=== PATIENT | female | born 1985 | race Caucasian/White ===

== ENCOUNTER 2017-04-08 12:15 | Inpatient (IN) ==
[2017-04-08 14:22] LABS: Basophils % 0.7 % (0.0-0.8); Eosinophils # 0.2 10*3/uL (0.0-0.87); Eosinophils % 6.1 % (0.00-10.9); Hematocrit 40.2 VOL% (35.7-47.0); Hemoglobin 14.2 GM/DL (12.0-16.0); Immature Granulocytes % 0.7 %; Immature Granulocytes Absolute 0.02 #; Lymphocytes # 0.9 10*3/uL (1.4-4.0); Lymphocytes % 33.8 % (21.3-54.2); Mean Corpuscular HGB Conc 35.3 GM/DL (32-36); Mean Corpuscular Hemoglobin 30 PG (27-34); Mean Corpuscular Volume 83.6 FL (87-102); Mean Platelet Volume 9.3 FL (9.6-12.0); Monocytes # 0.6 10*3/uL (0.11-0.8); Monocytes % 20.5 % (1.7-12.7); Neutrophils # 1.1 10*3/uL (1.4-7.4); Neutrophils % 38.2 % (38.7-73.9); Platelet Count 182 T/CUMM (130-400); Red Blood Count 4.81 MC/CUMM (3.8-5.5); Red Cell Distribution Width 12.5 % (9.3-17.3); White Blood Count 2.8 T/CUMM (4-12)
--- NOTE | 2017-04-08 14:38 | Ultrasound Report ---
Gallbladder ultrasound. Indication: Right upper quadrant pain and tenderness. No prior studies. The liver is mildly enlarged with a length of 19 cm. There is fatty infiltration of the liver. No gallstones are seen. There is no gallbladder wall thickening or fluid around the gallbladder. The common duct measures 5 mm. The right kidney presents a normal appearance. The pancreas is partially obscured by bowel gas. Visualized portions appear normal. Impression: Enlarged fatty liver. PROCEDURE INTERPRETED AT [facility] DEPARTMENT OF RADIOLOGY Final Report Signed by: Dr. Charity Acuna
[2017-04-08 14:50] LABS: Alanine Aminotransferase 84 U/L (13-56); Albumin 3.1 G/DL (3.4-5.0); Alkaline Phosphatase 66 U/L (45-117); Aspartate Amino Transferase 77 U/L (0-37); Bilirubin,Total < 0.39 MG/DL (0.2-1.0); Blood Urea Nitrogen 8 MG/DL (7-18); Calcium 8.4 MG/DL (8.5-10.1); Glucose 80 MG/DL (74-106); Osmolality,Calculated 275.4 MOS/KG (273-304); Potassium 4.3 MMOL/L (3.5-5.1); Sodium 140 MMOL/L (136-145); Total Protein 6.7 G/DL (6.4-8.3)
[2017-04-08 15:42] LABS: Apearance,Urine Slightly Hazy (Clear); Bilirubin,Urine Negative (Negative); Blood, Urine Small mg/dL (Negative); Glucose,Urine (UA) Negative (Negative); Hyaline Casts,Urine 4 /LPF (0-3); Ketones,Urine Negative (Negative); Mucus,Urine Occasional /LPF (Occasional); Nitrite,Urine Negative (Negative); Protein,Urine Negative; RBC,Urine 13 /HPF (0-4); Squamous Epithelial Cell,Urine Occasional /HPF (0-10); Urine Color Yellow (Yellow); Urine Specific Gravity 1.018 (1.001-1.035); Urine Urobilinogen < 2.0 EU/DL (0.2-1.0); WBC,Urine 1 /HPF (0-6)
--- NOTE | 2017-04-08 17:57 | Emergency Department Note ---
Damian Michaels Hilary, am scribing for, and in the presence of, Arjun Zaman MD 14:09. Junie Michaels Phillip K, MD, personally performed the services described in this documentation, ascribed by Jazzmine Salgado in my presence, and it is both accurate and complete 757 . Arrival - Arrival ED Nursing Triage Note: reports rlq abd pain that started on april 05. reports was seen in er in [place] then and told it was a cyst on her ovary. went to dr oviedo yesterday for same complaint and told to come to er for possible liver problem. reports also having some chills. Mode of Arrival: Ambulatory Limitations: No Limitations Source: Patient, RN Notes Reviewed - History of Present Illness Onset (ago): day(s) Consistency: constant Severity: moderate Severity scale (1-10): 2 Quality: sharp Date of Last Menstrual Period: two weeks ago <Arjun Zaman - Last Filed: 04/08/17 17:57> <Charli Guevara - Last Filed: 04/08/17 20:39> - Arrival Chief Complaint: Abdominal / Flank Pain Stated Complaint: pain in right wide with fever - History of Present Illness HPI Narrative: Pt is a 31 y/o female presenting to the ED with c/o right abdominal pain which onset 3 days ago. She states that the pain in her Right abdominal area started on April 05, she vomited and was seen in the ER in [place]. They told her she had a cyst on her ovary. She went to Dr. Oviedo yesterday for the complaint and was told to come here. Pt confirms abdominal pain, chills, and fever but denies nausea or vomiting. She also reports that eating sometimes makes it worse sometimes it doesn't. No other complaints or problems stated in the ED. (Jazzmine Salgado) Pt is a 31 y/o female presenting to the ED with c/o right abdominal pain which onset 3 days ago. She states that the pain in her Right abdominal area started on April 05, she vomited and was seen in the ER in [place]. They told her she had a cyst on her ovary. She went to Dr. Oviedo yesterday for the complaint and was told to come here. Pt confirms abdominal pain, chills, and fever but denies nausea or vomiting. She also reports that eating sometimes makes it worse sometimes it doesn't. No other complaints or problems stated in the ED. (Arjun Zaman) Allergies/Adverse Reactions: Allergies Allergy/AdvReac Type Severity Reaction Status Date / Time atropine [From ] Allergy RASH Verified 04/08/17 12:29 Hyoscyamine [From ] Allergy RASH Verified 04/08/17 12:29 phenobarbital [From ] Allergy RASH Verified 04/08/17 12:29 scopolamine [From ] Allergy RASH Verified 04/08/17 12:29 Home Medications: Home Medications Medication Instructions Recorded Confirmed Type Irbesartan [Avapro] 150 mg PO DAILY 04/08/17 04/08/17 History clonazePAM TAB [KlonoPIN] 0.5 mg PO QAM 04/08/17 04/08/17 History clonazePAM TAB [KlonoPIN] 1 mg PO BEDTIME 04/08/17 04/08/17 History hydroCHLOROthiazide 25 mg PO DAILY 04/08/17 04/08/17 History [Hydrochlorothiazide] Review of System - Review of System 12 point system: reviewed and no additional remarkable complaints except as stated - Review of System Constitutional: Present: chills, fever Gastrointestinal: Present: abdominal pain (RUQ), nausea, vomiting <Arjun Zaman - Last Filed: 04/08/17 17:57> Medical,Surgical,& Family Hx - Medical History Cardio: History of: Hypertension - Social History Smoking Status: Never smoker <Arjun Zaman - Last Filed: 04/08/17 17:57> Exam - General General appearance: alert, in no apparent distress, obese - Head Head exam: Present: atraumatic, normocephalic - Eye Eye exam: Present: normal appearance, PERRL, EOMI - ENT ENT exam: Present: mucous membranes moist, TM's normal bilaterally. Absent: mucous membranes dry - Neck Neck exam: Present: full ROM, trachea midline. Absent: tenderness - Chest Chest inspection: Present: symmetric chest wall rise. Absent: tenderness - Respiratory Respiratory exam: Present: normal lung sounds bilaterally. Absent: respiratory distress - Cardiovascular Cardiovascular exam: Present: normal rhythm, tachycardia, normal heart sounds. Absent: murmur, rubs, gallop - Abdominal Exam Abdominal exam: Present: soft, tenderness (RUQ with direct palpation), normal bowel sounds. Absent: distention - Extremities Exam Extremities exam: Present: full ROM. Absent: tenderness - Back Exam Back exam: Present: full ROM. Absent: tenderness - Neurological Exam Neurological exam: Present: alert, oriented X3, CN II-XII intact. Absent: motor sensory deficit - Psychiatric Psychiatric exam: Present: normal affect, normal mood - Skin Skin exam: Present: warm, dry, intact, normal color. Absent: rash <Arjun Zaman - Last Filed: 04/08/17 17:57> Vital Signs: Vital Signs Temperature 98.1 F 04/08/17 12:24 Pulse Rate 93 H 04/08/17 16:15 Respiratory Rate 20 04/08/17 16:15 Blood Pressure 169/116 04/08/17 16:15 O2 Sat by Pulse Oximetry 99 04/08/17 16:15 Course <Arjun Zaman - Last Filed: 04/08/17 17:57> - Consultations Time: 20:39 Time: 20:39 <Charli Guevara - Last Filed: 04/08/17 20:39> Course Narrative: Patient signed out to Dr. Guevara at 1800. HIDA scan is pending (Arjun Zaman) - Consultations Consultation #1: Dr. You advisement patient to the hospital follow-up with GI, Dr. You will see in consult (Charli Guevara) Consultation #2: Hospitalist will admit patient (Charli Guevara) Results - Labs CBC & BMP: 04/08/17 14:16 04/08/17 14:16 Lab Results: I have reviewed the patients labs - Diagnostic Findings Procedure: Ultrasound: report reviewed by me (GALLBLADDER: Enlarged fatty liver) <Arjun Zaman - Last Filed: 04/08/17 17:57> - Labs CBC & BMP: 04/08/17 14:16 04/08/17 14:16 <Charli Guevara - Last Filed: 04/08/17 20:39> - Labs Labs: Laboratory Tests 04/08/17 14:16 WBC 2.8 L RBC 4.81 Hgb 14.2 Hct 40.2 MCV 83.6 L Plt Count 182 MPV 9.3 L Neut % (Auto) 38.2 L [place] % (Auto) 20.5 H Neut # (Auto) 1.1 L Lymph # (Auto) 0.9 L Laboratory Tests 04/08/17 14:16 Sodium 140 Potassium 4.3 Chloride 106 Carbon Dioxide 26 BUN 8 Calcium 8.4 L AST 77 H ALT 84 H Total Protein 6.7 Albumin 3.1 L Globulin 3.6 H Albumin/Globulin Ratio 0.8 L Laboratory Tests 04/08/17 15:31 Urine pH 5.0 Ur Specific [place] 1.018 Urine Blood Small Urine Urobilinogen < 2.0 H Urine RBC 13 Urine WBC 1 Hyaline Casts 4 ([place],Jazzmine) Laboratory Tests 04/08/17 14:16 WBC 2.8 L RBC 4.81 Hgb 14.2 Hct 40.2 MCV 83.6 L Plt Count 182 MPV 9.3 L Neut % (Auto) 38.2 L [place] % (Auto) 20.5 H Neut # (Auto) 1.1 L Lymph # (Auto) 0.9 L Laboratory Tests 04/08/17 14:16 Sodium 140 Potassium 4.3 Chloride 106 Carbon Dioxide 26 BUN 8 Calcium 8.4 L AST 77 H ALT 84 H Total Protein 6.7 Albumin 3.1 L Globulin 3.6 H Albumin/Globulin Ratio 0.8 L Laboratory Tests 04/08/17 15:31 Urine pH 5.0 Ur Specific [place] 1.018 Urine Blood Small Urine Urobilinogen < 2.0 H Urine RBC 13 Urine WBC 1 Hyaline Casts 4 (Arjun Zaman) Disposition <Arjun Zaman - Last Filed: 04/08/17 17:57> Case discussed with: patient, patient's family Time of Disposition: 20:39 <Charli Guevara - Last Filed: 04/08/17 20:39> Clinical Impression: Abdominal pain Disposition: Still a Patient Condition: Stable
[2017-04-08 18:19] LABS: Eosinophils 3 % (0-10); Lymphocytes 36 % (20-55); Promyelocytes 1 %; Segmented Neutrophils 40 % (50-85); Total Cells Counted 100
[2017-04-08 18:20] LABS: Giant Platelets Few; Hypochromasia Slight; Platelet Estimate Adequate
--- NOTE | 2017-04-08 18:53 | Nuclear Medicine Report ---
Nuclear medicine hepatobiliary scan. Indication: Right upper quadrant abdominal pain. Following the intravenous administration of 5 mCi technetium 99m Choletec, hepatic excretion is prompt and uniform. Gallbladder activity can be seen by 5 minutes. Bowel activity can be seen by 30 minutes. The patient was administered 8 ounces of ensure orally, and the patient complained of cramping and nausea. The ejection fraction was calculated to be 57%, normal is 35% or greater. Impression: Normal study, except that the patient experienced pain and nausea, which she drank ensure. PROCEDURE INTERPRETED AT [facility] DEPARTMENT OF RADIOLOGY Final Report Signed by: Dr. Charity Acuna
[2017-04-08] MEDS ORDERED: ONDANSETRON 4 MG/2 ML VIAL ONE (19:03)
[2017-04-08] MEDS ORDERED: HYDROmorphone 2 MG/1 ML VIAL ONE (19:03)
[2017-04-08] MEDS ORDERED: HYDROmorphone 2 MG/1 ML VIAL IV ONE (19:08)
[2017-04-08] MEDS ORDERED: ONDANSETRON 4 MG/2 ML VIAL IV ONE (19:08)
--- NOTE | 2017-04-08 20:21 | XRay Report ---
2 view abdomen. Indication: Generalized abdominal pain. The heart is normal in size. The lung bases are clear. A 4 mm calcification projects over the lower pole of the left kidney. Multiple calcifications are seen within the pelvis. The bowel gas pattern is within the range of normal. No evidence of obstruction or free air. Normal osseous structures. Impression: Possible left nephrolithiasis. PROCEDURE INTERPRETED AT [facility] DEPARTMENT OF RADIOLOGY Final Report Signed by: Dr. Charity Acuna
--- NOTE | 2017-04-08 20:54 | XRay Report ---
2 view chest. Indication: Abdominal pain. The heart and mediastinal contours are unremarkable. The pulmonary vasculature is normal. There is no consolidation, pneumothorax, or pleural effusion. The osseous structures are unremarkable. Impression: No abnormality is seen. PROCEDURE INTERPRETED AT [facility] DEPARTMENT OF RADIOLOGY Final Report Signed by: Dr. Charity Acuna
--- NOTE | 2017-04-08 21:03 | Hospitalist History & Physical ---
Assessment and Plan - Time spent with patient Time spent with patient: Greater than 30 minutes (1) Abdominal pain Status: Acute Assessment and plan: Admit the patient to the MedSurg unit under service the hospital from the ED. Consult GI for possible upper GI. Will add hepatitis panel and H. Pylori to am labs. Continue empiric Flagyl 500 mg IV every 8. Pain control as needed Current Visit: Yes Qualifiers: Abdominal location: right upper quadrant Qualified Code(s): R10.11 - Right upper quadrant pain (2) Elevated AST (SGOT) Status: Acute Current Visit: Yes History of Present Illness Chief complaint: Right upper quadrant abd pain History of present illness: Ms. Leung is a 31 year old female female with a past medical history of HTN presents to the ED today with chief complaint of right upper quadrant abdominal pain. The reports the paint initially started April 05, following attending a BBQ. She reports her stomach cramped, she had nausea/vomiting, and diarrhea. She does report fever that waxes and wane with a T-max of 100.2. She reports the nausea/vomiting and diarrhea stopped the next day. She went to the ED in [place] and was diagnosed with a ovarian cyst and "stomach virus." She followed up with her PCP, Dr. Oviedo yesterday and was told she needed to report to the ED due to she may have liver problems based on the CT done in [facility]. CT of ABD and Pelvis with contrast performed at outlying facility demonstrates Enlarged, fatty liver, Left nephrolithiasis without urethral obstruction, and calcification present on left ovary and cystic areas to right recommending pelvic US. Initial work up in the ED reveals WBC of 2.8, H/H of 14.2 and 40.2, plt of 182, NA of 140, Potassium of 4.3, BUN of 8, creatinine of 0.70. HIDA scan returned normal results with the exception of cramping when drinking the ensure. Gallbladder US reveals enlarged fatty liver. She will be admitted to the MedSurg unit under service hospital for further treatment. Home Medications Medication Instructions Recorded Confirmed Type Irbesartan [Avapro] 150 mg PO DAILY 04/08/17 04/08/17 History clonazePAM TAB [KlonoPIN] 0.5 mg PO QAM 04/08/17 04/08/17 History clonazePAM TAB [KlonoPIN] 1 mg PO BEDTIME 04/08/17 04/08/17 History hydroCHLOROthiazide 25 mg PO DAILY 04/08/17 04/08/17 History [Hydrochlorothiazide] Allergies Allergy/AdvReac Type Severity Reaction Status Date / Time atropine [From ] Allergy RASH Verified 04/08/17 12:29 Hyoscyamine [From ] Allergy RASH Verified 04/08/17 12:29 phenobarbital [From ] Allergy RASH Verified 04/08/17 12:29 scopolamine [From ] Allergy RASH Verified 04/08/17 12:29 Medical,Surgical,& Family Hx - Medical History Cardio: History of: Hypertension Reproductive: History of: Sexually Transmitted Disorders - Surgical History Reproductive Surgeries: Surgical HX of;: Section - Family History Family History: Reports;: Family Diabetes, Family Heart Disease - Social History Smoking Status: Never smoker Frequency of Alcohol Use: None Type of Drug Use: None Marital Status: Lives With:: Spouse Functional capacity: independent ambulation - Constitutional Constitutional: Present: fever(s) (T-max 102, fever waxes and wanes ) - Gastrointestinal Gastrointestinal: Present: abdominal pain, cramping, nausea, vomiting Exam - Constitutional Vitals: Period Temp Pulse Resp BP Sys/Eisenberg Pulse Ox Last 24 Hr 98.1 F-98.1 F 86-97 18-22 133-184/74-154 97-100 General appearance: over weight - Head Head exam: Present: normal inspection - Eye Pupils: Present: AMANDA - ENT ENT exam: Present: normal exam - Neck Neck exam: Present: normal inspection - Respiratory Respiratory exam: Present: clear to auscultation bilaterally - Cardiovascular Cardiovascular exam: Present: regular rate and rhythm - GI/Abdominal GI/Abdominal exam: Present: hyperactive bowel sounds, tenderness (right upper quadrant ), soft - Extremities Exam Extremities exam: Present: normal inspection - Back Exam Back exam: Present: normal inspection - Neurological Exam Neurological exam: Present: alert, oriented X3 - Skin Skin exam: Present: normal color Results - Labs CBC & BMP: 04/08/17 14:16 04/08/17 14:16
[2017-04-08] MEDS ORDERED: ONDANSETRON 4 MG/2 ML VIAL IV PRN (21:46)
[2017-04-08] MEDS ORDERED: MORPHINE 2 MG/1 ML SYRINGE IV PRN (21:46)
[2017-04-08] MEDS: clonazePAM 0.5 MG TABLET PO SCH (22:14)
[2017-04-08] MEDS: metroNIDAZOLE INJ 500 MG in PREMIX 1 EACH IV SCH (22:14)
[2017-04-08] MEDS: ENOXAPARIN 40 MG/0.4 ML SYRINGE SUBCUT SCH (22:15)
[2017-04-08] MEDS: SODIUM CHLORIDE 0.9% 1,000 ML IV SCH (22:16)
[2017-04-08] MEDS: CIPROFLOXACIN INJ 400 MG in PREMIX 1 EACH IV SCH (23:28)
[2017-04-09] MEDS ORDERED: POTASSIUM CHLORIDE 20 MEQ TABLET PO PRN (01:02)
[2017-04-09] MEDS ORDERED: ACETAMINOPHEN 325 MG TABLET PO PRN (03:55)
[2017-04-09 04:19] LABS: Eosinophils # 0.2 10*3/uL (0.0-0.87); Eosinophils % 5.8 % (0.00-10.9); Hemoglobin 12.8 GM/DL (12.0-16.0); Immature Granulocytes % 0.3 %; Immature Granulocytes Absolute 0.01 #; Lymphocytes # 1.1 10*3/uL (1.4-4.0); Lymphocytes % 36.7 % (21.3-54.2); Mean Corpuscular HGB Conc 34.6 GM/DL (32-36); Mean Corpuscular Hemoglobin 29 PG (27-34); Mean Corpuscular Volume 83.1 FL (87-102); Monocytes # 0.5 10*3/uL (0.11-0.8); Monocytes % 15.9 % (1.7-12.7); Neutrophils # 1.2 10*3/uL (1.4-7.4); Neutrophils % 40.3 % (38.7-73.9); Platelet Count 203 T/CUMM (130-400); Red Blood Count 4.45 MC/CUMM (3.8-5.5); Red Cell Distribution Width 12.7 % (9.3-17.3); White Blood Count 3.1 T/CUMM (4-12)
[2017-04-09 04:49] LABS: Albumin 2.9 G/DL (3.4-5.0); Bilirubin,Total 0.7 MG/DL (0.2-1.0); Calcium 8.5 MG/DL (8.5-10.1); Magnesium 1.8 MG/DL (1.8-2.4); Osmolality,Calculated 272.7 MOS/KG (273-304); Potassium 3.8 MMOL/L (3.5-5.1); Risk Ratio 6.44
[2017-04-09 05:19] LABS: Band Neutrophils 6 % (0-10); Eosinophils 5 % (0-10); Lymphocytes 30 % (20-55); Myelocytes 5 %; Segmented Neutrophils 46 % (50-85)
[2017-04-09 05:20] LABS: Platelet Estimate Normal; Total Cells Counted 100
[2017-04-09] MEDS: metroNIDAZOLE INJ 500 MG in PREMIX 1 EACH IV SCH ×3 (06:12→21:58)
--- NOTE | 2017-04-09 07:10 | XRay Report ---
Single view of the abdomen. Indication: Generalized abdominal pain. Comparison: April 08, 2017. The lung bases are clear. No intra-abdominal organomegaly. Calcification projects over the left renal outline. Several calcifications are seen within the pelvis. There is a air in dilated loops of small intestine in the left upper quadrant. There is air in normal caliber colon without evidence of obstruction. Osseous structures are unremarkable. Impression: Mildly dilated air-filled loops of small intestine are seen in the left upper abdomen. This could be due to ileus or enteritis. Suspected left nephrolithiasis. PROCEDURE INTERPRETED AT [facility] DEPARTMENT OF RADIOLOGY Final Report Signed by: Dr. Charity Acuna
[2017-04-09 08:32] LABS: Hepatitis A Ab IgM Quant 0.18 Index; Hepatitis A Ab IgM Result Negative (Negative); Hepatitis B Core IgM Quant 0.15 Index; Hepatitis B Core IgM Result Negative (Negative); Hepatitis B Surface Ag Quant 0.31 Index; Hepatitis B Surface Ag Result Negative (Negative); Hepatitis C Virus Ab Quant 0.07 Index; Hepatitis C Virus Ab Result Negative (Negative)
[2017-04-09] MEDS: hydroCHLOROthiazide 25 MG TABLET PO SCH (08:52)
[2017-04-09] MEDS: clonazePAM 0.5 MG TABLET PO SCH ×2 (08:52→21:51)
[2017-04-09] MEDS: IRBESARTAN 150 MG TABLET PO SCH (08:52)
[2017-04-09] MEDS: PANTOPRAZOLE 40 MG VIAL IV SCH (08:53)
--- NOTE | 2017-04-09 10:45 | EKG Report ---
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
[2017-04-09] MEDS: CIPROFLOXACIN INJ 400 MG in PREMIX 1 EACH IV SCH ×2 (11:04→23:11)
--- NOTE | 2017-04-09 11:07 | Gastrointestinal Consult Note ---
Assessment and Plan - Time spent with patient Time spent with patient: Greater than 30 minutes (1) Abdominal pain Status: Acute Current Visit: Yes Qualifiers: Abdominal location: right upper quadrant Qualified Code(s): R10.11 - Right upper quadrant pain (2) Elevated liver enzymes Status: Acute Current Visit: Yes (3) Other specified counseling Status: Acute Current Visit: Yes History of Present Illness History of present illness: Ms. Leung is a 31 year old female Home Medications Medication Instructions Recorded Confirmed Type Irbesartan [Avapro] 150 mg PO DAILY 04/08/17 04/08/17 History clonazePAM TAB [KlonoPIN] 0.5 mg PO QAM 04/08/17 04/08/17 History clonazePAM TAB [KlonoPIN] 1 mg PO BEDTIME 04/08/17 04/08/17 History hydroCHLOROthiazide 25 mg PO DAILY 04/08/17 04/08/17 History [Hydrochlorothiazide] Allergies Allergy/AdvReac Type Severity Reaction Status Date / Time atropine [From ] Allergy RASH Verified 04/08/17 12:29 Hyoscyamine [From ] Allergy RASH Verified 04/08/17 12:29 phenobarbital [From ] Allergy RASH Verified 04/08/17 12:29 scopolamine [From ] Allergy RASH Verified 04/08/17 12:29 Medical,Surgical,& Family Hx - Medical History Cardio: History of: Hypertension Psychological: History of: Anxiety Disorders Respiratory: History of: Asthma Genitourinary: History of: Kidney Stones Musculoskeletal: History of: Back/Neck Problems Reproductive: History of: Sexually Transmitted Disorders - Surgical History Reproductive Surgeries: Surgical HX of;: Section Patient denies;: Hysterectomy - Family History Family History: Reports;: Family Diabetes, Family Heart Disease, Family Hypertension (father and grandmother) Denies;: Family Anesthesia Reaction, Family Hematology, Family Psychiatric Problems, Family Stroke, Additional Family History Comment Only: Family Cancer ((ovary)mother (lung) grandfather) - Social History Smoking Status: Never smoker Frequency of Alcohol Use: None Type of Drug Use: None Exam - Constitutional Vitals: Period Temp Pulse Resp BP Sys/Eisenberg Pulse Ox Last 24 Hr 97.1 F-99.1 F 86-104 18-22 117-184/74-154 21-100 Results - Labs CBC & BMP: 04/09/17 03:39 04/09/17 03:39 Note Addendum: PLEASE NOTE -- automatic citation of patient information is unavoidable in this electronic note. I have made a reasonable effort to review the information cited , but it is not a part of my evaluation, impression, or recommendation unless specifically discussed in the dictated text that follows. As well, voice recognition software was used in the creation of this clinical note. Reasonable effort was made to identify and correct gross errors. Despite proofreading, errors in technology applications engineer may be present, including nonsense verbiage at times. If you encounter such an error, please contact me at [phone] for discussion and correction. -- Luis Chief complaint: abdominal pain History of present illness: This is a new patient, a 31-year-old female seen by consultation for evaluation of abdominal pain. The patient is admitted to the hospitalist service under the care of Dr. Hook with a primary diagnosis of same. The patient was admitted through the emergency department with primary complaint of intermittent abdominal cramping, nausea, vomiting, diarrhea, and transient fever over the preceding week. Evaluation at that time revealed normal laboratory work with the exception of elevated transaminases and mild leukopenia. By report, CT scan taken at an outside facility revealed evidence of hepatic infiltration consistent with nonalcoholic fatty liver disease. The pain is reported as right upper quadrant, sharp quality, occurring several times per day, unrelated to body position, sometimes worse with eating, and usually self-limited after a few minutes. She has a history of esophageal reflux treated with proton pump inhibitor but has not been using that for the past week or two. Since her admission, the patient has been treated with enteric spectrum antibiotic, otherwise, supportively. At present she reports minimal discomfort and positive appetite. Patient denies night sweats, rigors, headache, dizziness, neck pain, visual changes, redness of the eyes, dysphagia, odynophagia, difficulty chewing, chest pain, shortness of breath, weight loss, hematemesis, hematochezia, melena, proctalgia, constipation, dysuria, skin changes, temperature regulation issues, flushing, easy bleeding/bruising, musculoskeletal pain, mental status change, numbness/weakness in the extremities, yellowing of the eyes/skin, cutaneous eruptions, and other complaints in general. Review of systems: 12 point review of systems was negative except as documented above. Outpatient medications: hydrochlorothiazide, Klonopin, Avapro Inpatient medications: Tylenol, ciprofloxacin, metronidazole, Klonopin, hydrochlorothiazide, Avapro, Zofran, Protonix, morphine sulfate, Zofran, sodium chloride infusion Past Medical History: hypertension, sexually transmitted disease Social history: negative tobacco. Negative alcohol Family history: no gastrointestinal cancers Physical examination: Vital Signs: Current vital signs reviewed and documented above. General Appearance: well-appearing. Not acutely ill. Head: Normocephalic. Neck: Palpation of the neck revealed no abnormalities. Eyes: No scleral icterus. No scleral injection. No conjunctival pallor. Oral Cavity: Odor of breath was normal. No drooling was observed. Lips showed no abnormalities. Floor of the mouth showed no abnormalities. Pharynx: Oropharynx was normal. Lungs: Respiration rhythm and depth was normal. Cardiovascular: Heart rate and rhythm were normal. No murmurs were appreciated. Abdomen: abdomen protuberant due to obesity but was not distended. Abdominal palpation revealed no tenderness and no hepatosplenomegaly. Ascites was not discovered. Abdominal auscultation revealed positive bowel sounds. Musculoskeletal System: Musculoskeletal system was grossly normal. Neurological: level of consciousness was normal. Speech was normal. Skin: General appearance was normal. Color and pigmentation were normal. No skin lesions. Laboratory: white blood count 3.1, hemoglobin 12.8, hematocrit 37.0, platelets 203, ALT 85, AST 79, alkaline phosphatase 63, total bilirubin 0.7, lipase 195, albumin 2.9, hepatitis panel negative Radiology: -- gallbladder ultrasound, April 08, 2017: enlarged infiltrated liver consistent with fatty liver; normal gallbladder; normal common bile duct -- HIDA scan, April 08, 2017: normal exam except subjective pain when drinking protein preparation Impressions: 1. Abdominal pain -- the differential diagnosis includes peptic ulcer, gastritis /esophagitis generally, pancreatic or biliary disease, acute hepatitis, infectious gastroenteritis, and others. I recommend continued proton pump inhibitor, continued clear liquid, and minimization of medications to whatever extent possible, and continued volume and electrolyte control. We will plan upper endoscopy with timing based on clinical progress, likely Tuesday. We will follow up with further recommendations pending results of the studies. 2. Elevated liver associated enzymes -- the patient has elevated transaminases and radiologic findings consistent with infiltrated disease, most likely nonalcoholic fatty liver disease. The differential diagnosis also includes infectious and/or toxic hepatitis, metabolic hepatitis, autoimmune hepatitis, and genetically mediated hepatidities. I recommend screening against hepatic differential and continued monitoring of enzymes for now. 3. Other specified counseling -- The patient was seen for greater than 30 minutes. The patient was counseled for greater than 50% of this time regarding differential diagnosis, likely diagnosis, diagnostic and therapeutic alternatives, risks/benefits/alternatives of medications and procedures, and plan of care generally. The patient expressed understanding and wishes to proceed. Recommendations: -- continued proton pump inhibitor -- continued volume and electrolyte management -- minimization of medications generally -- continued clear liquid diet -- continued monitoring of liver associated enzymes -- upper endoscopy, likely Tuesday -- thank you for this consultation. We will follow with you
--- NOTE | 2017-04-09 14:29 | Hospitalist Progress Note ---
<Tae Liz - Last Filed: 04/09/17 14:25> Assessment and Plan (1) Abdominal pain Status: Acute Assessment and plan: Awaiting GI recommendations. Continue Flagyl. Pain control. IVF. Advance diet. Current Visit: Yes Qualifiers: Abdominal location: right upper quadrant Qualified Code(s): R10.11 - Right upper quadrant pain Hospitalist: Subjective Interval history: Ms. Leung was seen and examined today. Pt. alert and oriented. No distress noted. Pt. states she feels slightly better. She still has some tenderness to her abdomen. Mild increase in AST/ALT today but not significant. Awaiting GI recommendations. Will continue current plan of care. Exam - Constitutional Vitals: Period Temp Pulse Resp BP Sys/Eisenberg Pulse Ox Last 24 Hr 97.1 F-99.1 F 86-104 18-20 117-184/74-154 21-100 General appearance: no acute distress, morbidly obese - Head Head exam: Present: normal inspection, normocephalic - Eye Eye exam: Present: EOMI. Absent: scleral icterus Pupils: Present: AMANDA. Absent: fixed - Neck Neck exam: Present: normal inspection - Respiratory Respiratory exam: Present: clear to auscultation bilaterally. Absent: wheezes - Cardiovascular Cardiovascular exam: Present: regular rate and rhythm - GI/Abdominal GI/Abdominal exam: Present: normal bowel sounds, tenderness, soft - Extremities Exam Extremities exam: Present: normal capillary refill, full ROM. Absent: edema - Neurological Exam Neurological exam: Present: alert, oriented X3 - Psychiatric Psychiatric exam: Present: normal affect, normal mood - Skin Skin exam: Present: normal color, warm, dry Results - Labs CBC & BMP: 04/09/17 03:39 04/09/17 03:39 Lab Results: I have reviewed the past 24 hour labs <Юлия Hook - Last Filed: 04/09/17 16:29> Hospitalist: Subjective Interval history: Patient seen and examined along with JOHNIE Liz, agree with assessment and plan as documented. Exam - Constitutional Vitals: Period Temp Pulse Resp BP Sys/Eisenberg Pulse Ox Last 24 Hr 97.1 F-99.1 F 87-104 18-20 117-179/74-109 21-99 Results - Labs CBC & BMP: 04/09/17 03:39 04/09/17 03:39
[2017-04-09] MEDS: SODIUM CHLORIDE 0.9% 1,000 ML IV SCH (18:30)
[2017-04-09 18:38] LABS: Ferritin 376.4 ng/ml (8-252)
[2017-04-09] MEDS: ENOXAPARIN 40 MG/0.4 ML SYRINGE SUBCUT SCH (21:51)
[2017-04-10] MEDS: SODIUM CHLORIDE 0.9% 1,000 ML IV SCH ×2 (02:00→16:22)
[2017-04-10 05:17] LABS: Basophils % 0.6 % (0.0-0.8); Eosinophils # 0.3 10*3/uL (0.0-0.87); Eosinophils % 10.1 % (0.00-10.9); Hemoglobin 12.8 GM/DL (12.0-16.0); Immature Granulocytes % 0.3 %; Immature Granulocytes Absolute 0.01 #; Lymphocytes # 1.5 10*3/uL (1.4-4.0); Lymphocytes % 46.2 % (21.3-54.2); Mean Corpuscular HGB Conc 34.6 GM/DL (32-36); Mean Corpuscular Hemoglobin 29 PG (27-34); Mean Corpuscular Volume 84.5 FL (87-102); Mean Platelet Volume 10.2 FL (9.6-12.0); Monocytes # 0.6 10*3/uL (0.11-0.8); Neutrophils # 0.8 10*3/uL (1.4-7.4); Neutrophils % 24.8 % (38.7-73.9); Platelet Count 203 T/CUMM (130-400); Red Blood Count 4.38 MC/CUMM (3.8-5.5); Red Cell Distribution Width 12.7 % (9.3-17.3); White Blood Count 3.2 T/CUMM (4-12)
[2017-04-10 05:39] LABS: Calcium 8.1 MG/DL (8.5-10.1); Osmolality,Calculated 272.7 MOS/KG (273-304); Potassium 3.7 MMOL/L (3.5-5.1)
[2017-04-10 05:52] LABS: Band Neutrophils 6 % (0-10); Eosinophils 5 % (0-10); Lymphocytes 49 % (20-55); Platelet Estimate Normal; Segmented Neutrophils 25 % (50-85); Total Cells Counted 100
[2017-04-10] MEDS: metroNIDAZOLE INJ 500 MG in PREMIX 1 EACH IV SCH ×3 (05:57→21:38)
[2017-04-10] MEDS: PANTOPRAZOLE 40 MG VIAL IV SCH (09:45)
[2017-04-10] MEDS: hydroCHLOROthiazide 25 MG TABLET PO SCH (09:47)
[2017-04-10] MEDS: clonazePAM 0.5 MG TABLET PO SCH ×2 (09:47→20:49)
[2017-04-10] MEDS: IRBESARTAN 150 MG TABLET PO SCH (09:47)
[2017-04-10] MEDS: CIPROFLOXACIN INJ 400 MG in PREMIX 1 EACH IV SCH ×2 (11:08→23:34)
--- NOTE | 2017-04-10 13:05 | Hospitalist Progress Note ---
Assessment and Plan (1) Abdominal pain Status: Acute Assessment and plan: GI following EGD tomorrow Current Visit: Yes Qualifiers: Abdominal location: right upper quadrant Qualified Code(s): R10.11 - Right upper quadrant pain (2) Elevated liver enzymes Status: Acute Assessment and plan: GI following Continue to monitor Current Visit: Yes Hospitalist: Subjective Interval history: No acute events overnight. Abdominal pain is better, controlled with pain medications. Still with some mild nausea. Reports being hungry. Exam - Constitutional Vitals: Period Temp Pulse Resp BP Sys/Eisenberg Pulse Ox Last 24 Hr 97.1 F-98.6 F 78-94 18-22 119-146/69-87 95-98 General appearance: over weight - Head Head exam: Present: normocephalic, atraumatic - Eye Eye exam: Present: EOMI Pupils: Present: AMANDA - ENT ENT exam: Present: normal exam - Neck Neck exam: Present: normal inspection - Respiratory Respiratory exam: Present: clear to auscultation bilaterally. Absent: rhonchi, wheezes - Cardiovascular Cardiovascular exam: Present: regular rate and rhythm - GI/Abdominal GI/Abdominal exam: Present: normal bowel sounds, soft. Absent: tenderness, rebound - Extremities Exam Extremities exam: Present: normal inspection - Back Exam Back exam: Present: normal inspection - Neurological Exam Neurological exam: Present: alert, oriented X3 - Psychiatric Psychiatric exam: Present: normal affect, normal mood - Skin Skin exam: Present: warm, intact Results - Labs CBC & BMP: 04/10/17 03:24 04/10/17 03:24
--- NOTE | 2017-04-10 15:00 | Gastrointestinal Progress Note ---
Assessment and Plan (1) Abdominal pain Status: Acute Current Visit: Yes Qualifiers: Abdominal location: right upper quadrant Qualified Code(s): R10.11 - Right upper quadrant pain (2) Elevated liver enzymes Status: Acute Current Visit: Yes (3) Other specified counseling Status: Acute Current Visit: Yes Exam (Progress Note) - Constitutional Vitals: Period Temp Pulse Resp BP Sys/Eisenberg Pulse Ox Last 24 Hr 97.1 F-98.6 F 78-94 18-22 119-146/69-87 95-98 Results - Labs CBC & BMP: 04/10/17 03:24 04/10/17 03:24 Note Addendum: This is a follow-up patient, a 31-year-old female seen by consultation for evaluation of abdominal pain. The patient reports some improvement but continues with right upper quadrant cramping. She is tolerating oral intake without exacerbation of symptoms. Review of systems: 12 point review of systems was negative except as documented above. Inpatient medications: Tylenol, ciprofloxacin, metronidazole, Klonopin, hydrochlorothiazide, Avapro, Zofran, Protonix, morphine sulfate, Zofran, sodium chloride infusion Physical examination: Vital Signs: Current vital signs reviewed and documented above. General Appearance: well-appearing. Not acutely ill. Head: Normocephalic. Neck: Palpation of the neck revealed no abnormalities. Eyes: No scleral icterus. No scleral injection. No conjunctival pallor. Oral Cavity: Odor of breath was normal. No drooling was observed. Lips showed no abnormalities. Floor of the mouth showed no abnormalities. Pharynx: Oropharynx was normal. Lungs: Respiration rhythm and depth was normal. Cardiovascular: Heart rate and rhythm were normal. No murmurs were appreciated. Abdomen: abdomen protuberant due to obesity but was not distended. Abdominal palpation revealed no tenderness and no hepatosplenomegaly. Ascites was not discovered. Abdominal auscultation revealed positive bowel sounds. Musculoskeletal System: Musculoskeletal system was grossly normal. Neurological: level of consciousness was normal. Speech was normal. Skin: General appearance was normal. Color and pigmentation were normal. No skin lesions. Laboratory: white blood count 3.2, hemoglobin 12.8, hematocrit 37.0, platelets 23, liver labs pending Radiology: -- gallbladder ultrasound, April 08, 2017: enlarged infiltrated liver consistent with fatty liver; normal gallbladder; normal common bile duct -- HIDA scan, April 08, 2017: normal exam except subjective pain when drinking protein preparation Impressions: 1. Abdominal pain -- the patient reports some improvement but continues with cramping. We will plan upper endoscopy tomorrow and will follow up with further recommendations pending the results of that exam. In the interim, continue supportive care. 2. Elevated liver associated enzymes -- the patient has elevated transaminases and radiologic findings consistent with infiltrative disease. Screening labs are pending. The patient will need to follow-up in the outpatient gastroenterology clinic for further management. 3. Other specified counseling -- The patient was seen for greater than 30 minutes. The patient was counseled for greater than 50% of this time regarding differential diagnosis, likely diagnosis, diagnostic and therapeutic alternatives, risks/benefits/alternatives of medications and procedures, and plan of care generally. The patient expressed understanding and wishes to proceed. Recommendations: -- continued proton pump inhibitor -- continued volume and electrolyte management -- minimization of medications generally -- continued clear liquid diet -- continued monitoring of liver associated enzymes -- upper endoscopy Tuesday -- thank you for this consultation. Dr. Watson will assume G.I. care for this patient tomorrow.
[2017-04-10] MEDS: ENOXAPARIN 40 MG/0.4 ML SYRINGE SUBCUT SCH (20:49)
[2017-04-11] MEDS: metroNIDAZOLE INJ 500 MG in PREMIX 1 EACH IV SCH ×2 (05:52→17:11)
[2017-04-11 06:12] LABS: Basophils % 0.9 % (0.0-0.8); Eosinophils # 0.2 10*3/uL (0.0-0.87); Eosinophils % 7.4 % (0.00-10.9); Hematocrit 37.2 VOL% (35.7-47.0); Immature Granulocytes % 0.3 %; Immature Granulocytes Absolute 0.01 #; Lymphocytes # 1.7 10*3/uL (1.4-4.0); Lymphocytes % 50.6 % (21.3-54.2); Mean Corpuscular HGB Conc 34.9 GM/DL (32-36); Mean Corpuscular Hemoglobin 29 PG (27-34); Mean Corpuscular Volume 83.2 FL (87-102); Mean Platelet Volume 9.5 FL (9.6-12.0); Monocytes # 0.5 10*3/uL (0.11-0.8); Neutrophils # 0.8 10*3/uL (1.4-7.4); Neutrophils % 25.8 % (38.7-73.9); Platelet Count 211 T/CUMM (130-400); Red Blood Count 4.47 MC/CUMM (3.8-5.5); Red Cell Distribution Width 12.6 % (9.3-17.3); White Blood Count 3.3 T/CUMM (4-12)
[2017-04-11 06:55] LABS: Alanine Aminotransferase 92 U/L (13-56); Albumin 2.9 G/DL (3.4-5.0); Alkaline Phosphatase 64 U/L (45-117); Aspartate Amino Transferase 78 U/L (0-37); Bilirubin,Indirect 0.3 MG/DL (0.0-1.0); Bilirubin,Total < 0.39 MG/DL (0.2-1.0); Blood Urea Nitrogen 7 MG/DL (7-18); Calcium 8.2 MG/DL (8.5-10.1); Glucose 94 MG/DL (74-106); Osmolality,Calculated 272.7 MOS/KG (273-304); Potassium 3.8 MMOL/L (3.5-5.1); Sodium 138 MMOL/L (136-145)
[2017-04-11 07:05] LABS: Band Neutrophils 1 % (0-10); Eosinophils 5 % (0-10); Hypochromasia Slight; Lymphocytes 48 % (20-55); Microcytosis Slight; Platelet Estimate Adequate; Segmented Neutrophils 32 % (50-85); Total Cells Counted 100
[2017-04-11] MEDS: hydroCHLOROthiazide 25 MG TABLET PO SCH (09:45)
[2017-04-11] MEDS: IRBESARTAN 150 MG TABLET PO SCH (09:45)
[2017-04-11] MEDS: clonazePAM 0.5 MG TABLET PO SCH ×2 (09:45→21:19)
[2017-04-11] MEDS: PANTOPRAZOLE 40 MG VIAL IV SCH ×3 (09:45→21:18)
[2017-04-11] MEDS: SODIUM CHLORIDE 0.9% 1,000 ML IV SCH ×2 (09:46→17:14)
[2017-04-11] MEDS ORDERED: PROPOFOL 200 MG/20 ML VIAL IV ONE (11:48)
[2017-04-11] MEDS ORDERED: LIDOCAINE 2% 5 ML VIAL ONE (11:48)
--- NOTE | 2017-04-11 11:55 | History and Physical Update ---
History and Physical Update - Physical Exam Mental Status: alert and oriented Heart: regular rate and rhythm Lung: clear to auscultation Abdomen: within normal limits Vitals: within normal limits
--- NOTE | 2017-04-11 11:58 | Operative Note ---
Date of procedure: 04/11/17 Pre-op diagnosis: Right upper quadrant pain with reflux Procedure: EGD 31-year-old female admitted with complaints of epigastric right upper quadrant pain also reports frequent history of reflux she is on no medications for this. She is now for EGD to evaluate for source of abdominal pain with negative ultrasound and HIDA scan. Informed symptoms obtained patient She was sedated with MAC anesthesia per anesthesia Patient placed in left lateral decubitus position the Olympus flexible video upper endoscope was inserted into the oral cavity under direct vision the esophagus was intubated. Findings: Esophagus-normal proximal mid esophageal mucosa distal esophagus with moderate hiatal hernia. There is erosive esophagitis present in the distal esophagus. Stomach-normal insufflation normal mucosa to direct retroflexed views of the body, fundus, cardia and antrum the stomach. Pylorus-normal Duodenum-normal for the bulb and duodenum to the first portion of the jejunum. Procedure terminated placed our procedure well she is discharged recovery in good condition Postop diagnosis: 1. Gastroesophageal reflux disease with erosive esophagitis-continue with twice daily PPI treatment. It is likely this is causing the majority of her symptoms with her negative ultrasound and HIDA scan. We can consider CT scan if symptoms persist but for now would treat expectantly with acid suppression. Anesthesia: MAC Surgeon / Physician: Richard Watson Estimated blood loss: none Specimens: none sent Condition: stable Disposition: post procedure unit Results - Labs CBC & BMP: 04/11/17 05:53 04/11/17 05:53 Discharge Plan - Discharge Medications No Action hydroCHLOROthiazide [Hydrochlorothiazide] 25 mg PO DAILY clonazePAM TAB [KlonoPIN] 0.5 mg PO QAM clonazePAM TAB [KlonoPIN] 1 mg PO BEDTIME Irbesartan [Avapro] 150 mg PO DAILY - Follow Up or Referral - Forms/Instructions
--- NOTE | 2017-04-11 12:01 | Anesthesia Post-Op ---
Anesthesia Post OP - Post Ansesthetic Evaluation Patient seen in post op: Yes Resp: within normal limits CV: within normal limits Mental: within normal limits Temp: within normal limits [id number]: within normal limits Nausea and Vomiting: within normal limits Pain: within normal limits
--- NOTE | 2017-04-11 12:36 | Hospitalist Progress Note ---
Assessment and Plan (1) Abdominal pain Status: Acute Assessment and plan: GI following EGD today with GERD with erosive esophagitis, continue with ppi bid Current Visit: Yes Qualifiers: Abdominal location: right upper quadrant Qualified Code(s): R10.11 - Right upper quadrant pain (2) Elevated liver enzymes Status: Acute Assessment and plan: GI following Continue to monitor Current Visit: Yes Hospitalist: Subjective Interval history: No acute events overnight. Abdominal pain is better. She is eager for a regular diet. Exam - Constitutional Vitals: Period Temp Pulse Resp BP Sys/Eisenberg Pulse Ox Last 24 Hr 97.0 F-97.9 F 77-101 12-22 106-152/59-91 93-98 General appearance: over weight - Head Head exam: Present: normocephalic, atraumatic - Eye Eye exam: Present: EOMI Pupils: Present: AMANDA - ENT ENT exam: Present: normal exam - Neck Neck exam: Present: normal inspection - Respiratory Respiratory exam: Present: clear to auscultation bilaterally - Cardiovascular Cardiovascular exam: Present: regular rate and rhythm - GI/Abdominal GI/Abdominal exam: Present: normal bowel sounds, soft. Absent: tenderness, rebound - Extremities Exam Extremities exam: Present: normal inspection - Back Exam Back exam: Present: normal inspection - Neurological Exam Neurological exam: Present: alert, oriented X3 - Psychiatric Psychiatric exam: Present: normal affect, normal mood - Skin Skin exam: Present: warm, intact Results - Labs CBC & BMP: 04/11/17 05:53 04/11/17 05:53
[2017-04-11] MEDS: CIPROFLOXACIN INJ 400 MG in PREMIX 1 EACH IV SCH (13:45)
[2017-04-11] MEDS: ENOXAPARIN 40 MG/0.4 ML SYRINGE SUBCUT SCH (21:19)
[2017-04-12] MEDS: metroNIDAZOLE INJ 500 MG in PREMIX 1 EACH IV SCH ×2 (00:26→09:25)
[2017-04-12] MEDS: CIPROFLOXACIN INJ 400 MG in PREMIX 1 EACH IV SCH (02:04)
[2017-04-12 06:41] LABS: Albumin 2.9 G/DL (3.4-5.0); Bilirubin,Direct 0.1 MG/DL (0.0-0.20); Bilirubin,Indirect 0.7 MG/DL (0.0-1.0); Bilirubin,Total 0.8 MG/DL (0.2-1.0); Total Protein 6.1 G/DL (6.4-8.3)
[2017-04-12] MEDS: PANTOPRAZOLE 40 MG VIAL IV SCH (09:26)
[2017-04-12] MEDS: hydroCHLOROthiazide 25 MG TABLET PO SCH (09:26)
[2017-04-12] MEDS: clonazePAM 0.5 MG TABLET PO SCH (09:26)
[2017-04-12] MEDS: IRBESARTAN 150 MG TABLET PO SCH (09:26)
[2017-04-12] MEDS: SODIUM CHLORIDE 0.9% 1,000 ML IV SCH (09:27)
--- NOTE | 2017-04-12 11:22 | Gastrointestinal Progress Note ---
<DexjessicaCornelia Kristel - Last Filed: 04/12/17 11:20> Assessment and Plan (1) Abdominal pain Status: Acute Assessment and plan: 04/12-EGD findings noted as below. Tolerating diet at present time. Denies pain , nausea or vomiting. Continue to monitor at present time. Plan an addendum to follow Dr. Watson Current Visit: Yes Qualifiers: Abdominal location: right upper quadrant Qualified Code(s): R10.11 - Right upper quadrant pain (2) Elevated liver enzymes Status: Acute Assessment and plan: 04/12-LFTs remain unchanged at this time. Continue to monitor. Plan an addendum to follow by Dr. Watson. Current Visit: Yes Gastroenterology - PN: Subj Interval history: CC: Right upper quadrant pain Patient is seen, awake and alert lying in bed. States that she is feeling better at this time. She denies any abdominal pain, nausea or vomiting. She seems to tolerate her breakfast well. EGD findings noted with GERD and erosive esophagitis. Gallbladder workup also negative thus far. Patient states that she does take NSAIDs at times including obesity and Aleve. Abdomen is soft, nontender. ROS: Denies shortness of breath or chest pain Exam (Progress Note) - Constitutional Vitals: Period Temp Pulse Resp BP Sys/Eisenberg Pulse Ox Last 24 Hr 97.9 F-98.7 F 82-101 14-20 107-169/51-94 96-99 General appearance: normal weight, no acute distress - Head Head exam: Present: normal inspection, normocephalic - Eye Eye exam: Present: other (Lids and conjunctive are unremarkable). Absent: scleral icterus - ENT ENT exam: Present: normal exam, normal oropharynx - Neck Neck exam: Present: normal inspection - Respiratory Respiratory exam: Present: clear to auscultation bilaterally. Absent: rales, rhonchi, wheezes - Cardiovascular Cardiovascular exam: Present: regular rate and rhythm. Absent: diastolic murmur , JVD, systolic murmur - GI/Abdominal GI/Abdominal exam: Present: normal bowel sounds, soft. Absent: ascites, distended, mass, organomegaly, tenderness - Extremities Exam Extremities exam: Present: normal inspection, full ROM - Back Exam Back exam: Present: normal inspection - Neurological Exam Neurological exam: Present: alert, oriented X3 - Psychiatric Psychiatric exam: Present: normal affect, normal mood - Skin Skin exam: Present: normal color, warm, dry Results - Labs CBC & BMP: 04/11/17 05:53 04/11/17 05:53 Lab Results: I have reviewed the past 24 hour labs <Richard Watson - Last Filed: 04/12/17 11:45> Exam (Progress Note) - Constitutional Vitals: Period Temp Pulse Resp BP Sys/Eisenberg Pulse Ox Last 24 Hr 97.9 F-98.7 F 82-101 14-20 107-169/51-94 96-99 Results - Labs CBC & BMP: 04/11/17 05:53 04/11/17 05:53
[2017-04-12 11:29] VITALS: BP 121/70
[2017-04-12 12:34] LABS: Smooth Muscle Antibody Negative (Negative)
--- NOTE | 2017-04-12 12:49 | Discharge Summary ---
<Frida Keatingda - Last Filed: 04/12/17 12:35> Hospital Course - Hospital Course Hospital Course: This is a 31-year-old female that presented to the ED at [facility] on April 08, 2017 for the evaluation of right upper quadrant abdominal pain. The patient has a medical history significant for hypertension. Patient has a surgical history of section. The patient reported the onset of symptoms 3 days prior to presentation. She reported that she attended a barbeque and had some food there. Shortly after leaving the barbecue, the patient developed nausea, vomiting, diarrhea, and started to experience abdominal cramping. She reported that the nausea and vomiting subsided on the next day however the abdominal cramping remained. She reported fever and noted a temperature of 100.2 at home. She presented to the ED at [facility] for further evaluation. She was evaluated and subsequently diagnosed with an ovarian cyst and gastroenteritis. She was discharged home and instructed to follow-up with her primary care physician. On the day prior to presentation, presented to her primary care physician Dr. Oviedo. She was evaluated and told that she needed to report to the ED due to some abnormal findings noted on the CT scan performed at [facility] during the clinical encounter. The patient presented to [facility] for further evaluation. The patient was seen and evaluated in the emergency department and was subsequently admitted to the hospitalist services for continuation of care. A gastroenterology consultation was requested to evaluate and assist during the clinical encounter. An ultrasound of the gallbladder reported a enlarged fatty liver. Nuclear medicine hepatobiliary scan was essentially unremarkable with the exception that the patient experienced pain and nausea when she drank the Ensure given during the examination. Abdominal x-ray reported possible left nephrolithiasis. The patient was seen and evaluated by gastroenterology. On April 11, 2017, the patient underwent esophagogastroduodenoscopy which yielded gastroesophageal reflux disease with erosive esophagitis. Protein pump inhibitors were continued twice daily per gastroenterology recommendation. The patient's condition gradually improved. Her diet has been tolerated and she is now tolerating a regular diet. She has not experienced any significant overnight events. The patient's vital signs are stable. Today, we feel that she is indeed appropriate for discharge to follow-up with her primary care physician. Discharge Plan - Discharge Data Disposition: Disch To Home/Self Care - Discharge Medications New HYDROcodone/ACETAMIN 7.5-325 [[place] 7.5-325] 1 tablet PO Q4H PRN #20 tablet PRN Reason: Pain Moderate (4-7) Pantoprazole Tab [Protonix Tab] 40 mg PO BID #60 tablet Continue hydroCHLOROthiazide [Hydrochlorothiazide] 25 mg PO DAILY clonazePAM TAB [KlonoPIN] 0.5 mg PO QAM clonazePAM TAB [KlonoPIN] 1 mg PO BEDTIME Irbesartan [Avapro] 150 mg PO DAILY - Follow Up or Referral - Forms/Instructions Exam - Constitutional Vitals: Period Temp Pulse Resp BP Sys/Eisenberg Pulse Ox Last 24 Hr 97.9 F-98.7 F 82-100 20-20 107-169/51-94 96-99 Discharge Results Procedures and tests throughout hospitalization: Pending Orders 04/08/17 21:46 Helicobacter pylori Ag Feces Routine 04/09/17 18:00 Ceruloplasmin Routine Mitochondrial Antibody (M2) Routine Smooth Muscle Antibody Routine Labs on day of discharge: Labs from last 24 hours 04/12/17 04/09/17 04:31 18:00 Total Bilirubin 0.80 Direct Bilirubin 0.10 Indirect Bilirubin 0.7 AST 84 H ALT 103 H Alkaline Phosphatase 62 Total Protein 6.1 L Albumin 2.9 L Anti-Smooth Muscle Ab Negative DS: Provider Date of admission: 04/08/17 20:40 Primary care physician: . No PCP Attending physician on admission: Eliseo Gregorio MD Consults: 04/08/17 21:46 Consult to Physician [CONS] Routine Comment: Upper abdominal pain ruQ Consulting Provider: Richard Watson When should Consulting Provider be notified: In am Person Notified: Dr. Smith Date Notified: 04/09/17 Time Notified: 08:37 Discharging clinician: Julien Keating CNP <Юлия Hook - Last Filed: 04/12/17 13:34> Hospital Course - Time spent with patient Time with patient DS: Less than 30 minutes (25) Diagnosis - Discharge Diagnosis (1) Abdominal pain Status: Resolved (2) Elevated liver enzymes Status: Acute Discharge Plan - Discharge Data Condition at Discharge: Stable Discharge Diet: advance to your usual diet Activity: increase activity as tolerated Hygiene: no restrictions Weight Bearing at Discharge: weight bear as tolerated Driving: no restrictions Contact your physician if you experience:: fever over 101, Nausea/Vomiting, pain uncontrolled by pain medications Exam - Constitutional General appearance: over weight - Head Head exam: Present: normocephalic, atraumatic - Eye Eye exam: Present: EOMI Pupils: Present: AMANDA - ENT ENT exam: Present: normal exam - Neck Neck exam: Present: normal inspection - Respiratory Respiratory exam: Present: clear to auscultation bilaterally. Absent: rhonchi, wheezes - Cardiovascular Cardiovascular exam: Present: regular rate and rhythm - GI/Abdominal GI/Abdominal exam: Present: normal bowel sounds, soft. Absent: tenderness, rebound - Extremities Exam Extremities exam: Present: normal inspection - Back Exam Back exam: Present: normal inspection - Neurological Exam Neurological exam: Present: alert, oriented X3 - Psychiatric Psychiatric exam: Present: normal affect, normal mood - Skin Skin exam: Present: warm, intact
[2017-04-13 13:53] LABS: Mitochondrial Antibody (M2) <0.1 U
[2017-04-15 14:29] LABS: Ceruloplasmin 40 mg/dL (18-53)
== END 2017-04-12 15:21 | disposition home or self-care (01) | DRG 381 ==
LOC: N.ED 12:15 → SUATTDRO 20:40 → N.EDINP 20:40 → N.2E 21:13
PROVIDERS: ADMIT Internal Medicine; ATTEND Internal Medicine

== ENCOUNTER 2019-06-07 13:55 | Observation (INO) ==
[2019-06-07] MEDS ORDERED: PROMETHAZINE 25 MG/1 ML VIAL IM PRN (16:01)
[2019-06-07] MEDS ORDERED: ACETAMINOPHEN 325 MG TABLET PO PRN (16:01)
[2019-06-07] MEDS ORDERED: MORPHINE 4 MG/1 ML VIAL IV PRN (16:01)
[2019-06-07] MEDS ORDERED: ONDANSETRON 4 MG/2 ML VIAL IV PRN (16:01)
[2019-06-07] MEDS ORDERED: PANTOPRAZOLE 40 MG TABLET PO SCH (16:30)
[2019-06-07] MEDS ORDERED: PANTOPRAZOLE 40 MG TABLET PO ONE (16:53)
[2019-06-07] MEDS: KETOROLAC 15 MG/1 ML VIAL IV SCH (17:00)
[2019-06-07] MEDS: LOSARTAN 50 MG TABLET PO SCH (17:00)
[2019-06-07] MEDS: hydroCHLOROthiazide 25 MG TABLET PO SCH (17:00)
[2019-06-07 17:34] LABS: Basophils # 0.1 10*3/uL (0.0-0.2); Basophils % 0.4 % (0.0-0.8); Hematocrit 42.2 VOL% (35.7-47.0); Hemoglobin 14.3 GM/DL (12.0-16.0); Immature Granulocytes % 0.5 %; Immature Granulocytes Absolute 0.06 #; Lymphocytes # 2.5 10*3/uL (1.4-4.0); Lymphocytes % 19.9 % (21.3-54.2); Mean Corpuscular HGB Conc 33.9 GM/DL (32-36); Mean Corpuscular Volume 86.1 FL (87-102); Mean Platelet Volume 9.8 FL (9.6-12.0); Monocytes % 5.8 % (1.7-12.7); Neutrophils % 73.4 % (38.7-73.9); Platelet Count 367 T/CUMM (130-400); Red Cell Distribution Width 12.8 % (9.3-17.3); White Blood Count 12.5 T/CUMM (4-12)
[2019-06-07 17:53] LABS: Troponin I < 0.015 NG/ML (0.00-0.045)
[2019-06-07 18:00] LABS: Alanine Aminotransferase 41 U/L (13-56); Albumin 3.2 G/DL (3.4-5.0); Alkaline Phosphatase 67 U/L (45-117); Aspartate Amino Transferase 19 U/L (0-37); Bilirubin,Total < 0.39 MG/DL (0.2-1.0); Blood Urea Nitrogen 16 MG/DL (7-18); Calcium 8.8 MG/DL (8.5-10.1); Glucose 99 MG/DL (74-106); Osmolality,Calculated 277.5 MOS/KG (273-304); Total Protein 7.5 G/DL (6.4-8.3)
[2019-06-07] MEDS: PANTOPRAZOLE 40 MG TABLET PO SCH (20:16)
[2019-06-07] MEDS ORDERED: clonazePAM 0.5 MG TABLET PO SCH (21:00)
[2019-06-07] MEDS ORDERED: ENOXAPARIN 40 MG/0.4 ML SYRINGE SUBCUT SCH (21:00)
[2019-06-07 21:01] LABS: Troponin I < 0.015 NG/ML (0.00-0.045)
[2019-06-07 23:39] LABS: Troponin I 0.015 NG/ML (0.00-0.045)
[2019-06-08] MEDS: KETOROLAC 15 MG/1 ML VIAL IV SCH ×2 (00:28→05:52)
[2019-06-08 01:06] LABS: Risk Ratio 5.97
[2019-06-08 01:07] LABS: Troponin I < 0.015 NG/ML (0.00-0.045)
[2019-06-08 08:08] VITALS: BP 157/87
[2019-06-08] MEDS ORDERED: clonazePAM 0.5 MG TABLET PO SCH (09:00)
[2019-06-08] MEDS: LOSARTAN 50 MG TABLET PO SCH (09:34)
[2019-06-08] MEDS: PANTOPRAZOLE 40 MG TABLET PO SCH (09:34)
[2019-06-08] MEDS: hydroCHLOROthiazide 25 MG TABLET PO SCH (09:34)
== END 2019-06-08 10:40 | disposition home or self-care (01) ==
LOC: N.TELES
PROVIDERS: ADMIT Internal Medicine; ATTEND Internal Medicine

== ENCOUNTER 2020-06-18 18:55 | Inpatient (IN) ==
[2020-06-18] MEDS ORDERED: HYDROmorphone 2 MG/1 ML VIAL IV STA (19:29)
[2020-06-18] MEDS ORDERED: SODIUM CHLORIDE 0.9% 500 ML IV STA (19:29)
[2020-06-18] MEDS ORDERED: PANTOPRAZOLE 40 MG VIAL IV STA (19:29)
[2020-06-18] MEDS ORDERED: ALUM/MAG/SIMETH/LIDO VISC 1:1 30 ML BOTTLE PO STA (19:29)
[2020-06-18] MEDS ORDERED: ONDANSETRON 4 MG/2 ML VIAL IV STA (19:29)
[2020-06-18] MEDS ORDERED: hydrALAZINE 20 MG/1 ML VIAL IV STA ×2 (19:50→21:52)
[2020-06-18 20:08] LABS: Basophils # 0.1 10*3/uL (0.0-0.2); Basophils % 0.7 % (0.0-0.8); Eosinophils # 0.2 10*3/uL (0.0-0.87); Eosinophils % 2.7 % (0.00-10.9); Hematocrit 41.7 VOL% (35.7-47.0); Hemoglobin 14.3 GM/DL (12.0-16.0); Immature Granulocytes % 0.2 %; Immature Granulocytes Absolute 0.02 #; Lymphocytes # 2.3 10*3/uL (1.4-4.0); Lymphocytes % 28.2 % (21.3-54.2); Mean Corpuscular HGB Conc 34.3 GM/DL (32-36); Mean Corpuscular Volume 85.1 FL (87-102); Neutrophils % 59.2 % (38.7-73.9); Platelet Count 257 T/CUMM (130-400); Red Cell Distribution Width 12.6 % (9.3-17.3); White Blood Count 8.2 T/CUMM (4-12)
[2020-06-18 20:32] LABS: Alanine Aminotransferase 86 U/L (13-56); Albumin 3.1 G/DL (3.4-5.0); Alkaline Phosphatase 129 U/L (45-117); Amylase 35 U/L (25-115); Aspartate Amino Transferase 55 U/L (0-37); Bilirubin,Total < 0.39 MG/DL (0.2-1.0); Blood Urea Nitrogen 11 MG/DL (7-18); Calcium 8.7 MG/DL (8.5-10.1); Estimated Glom Filtration Rate 85 ML/MIN; Glucose 290 MG/DL (74-106); Osmolality,Calculated 282.8 MOS/KG (273-304); Total Protein 7.1 G/DL (6.4-8.3)
[2020-06-18 21:48] LABS: Apearance,Urine CLEAR (Clear); Bacteria,Urine Occasional /HPF (Few); Bilirubin,Urine Negative (Negative); Blood, Urine Negative (Negative); Glucose,Urine (UA) >=500 mg/dL (Negative); Ketones,Urine Negative (Negative); Mucus,Urine Occasional /LPF (Occasional); Nitrite,Urine Negative (Negative); Protein,Urine Negative; RBC,Urine 1 /HPF (0-4); Squamous Epithelial Cell,Urine Occasional /HPF (0-10); Urine Color Straw (Yellow); Urine Specific Gravity 1.014 (1.001-1.035); Urine Urobilinogen < 2.0 EU/DL (0.2-1.0); WBC,Urine 1 /HPF (0-6)
[2020-06-19] MEDS ORDERED: ACETAMINOPHEN 325 MG TABLET PO PRN (00:16)
[2020-06-19] MEDS: HYDROmorphone 2 MG/1 ML VIAL IV PRN ×4 (00:29→20:17)
[2020-06-19] MEDS: ONDANSETRON 4 MG/2 ML VIAL IV PRN ×2 (00:29→09:15)
[2020-06-19] MEDS: PIPERACILLIN/TAZOBACTAM 3,375 MG in SODIUM CHLORIDE 0.9% 100 ML IV SCH ×3 (00:54→17:47)
[2020-06-19 05:43] LABS: Basophils # 0.1 10*3/uL (0.0-0.2); Basophils % 0.9 % (0.0-0.8); Eosinophils # 0.1 10*3/uL (0.0-0.87); Eosinophils % 1.2 % (0.00-10.9); Hematocrit 41.3 VOL% (35.7-47.0); Hemoglobin 13.8 GM/DL (12.0-16.0); Immature Granulocytes % 0.4 %; Immature Granulocytes Absolute 0.03 #; Lymphocytes # 1.5 10*3/uL (1.4-4.0); Lymphocytes % 22.3 % (21.3-54.2); Mean Corpuscular HGB Conc 33.4 GM/DL (32-36); Mean Corpuscular Volume 85.2 FL (87-102); Mean Platelet Volume 11.2 FL (9.6-12.0); Monocytes % 7.6 % (1.7-12.7); Neutrophils % 67.6 % (38.7-73.9); Platelet Count 224 T/CUMM (130-400); Red Blood Count 4.85 MC/CUMM (3.8-5.5); Red Cell Distribution Width 12.7 % (9.3-17.3); White Blood Count 6.8 T/CUMM (4-12)
[2020-06-19 05:53] LABS: Albumin 2.9 G/DL (3.4-5.0); Bilirubin,Total 0.5 MG/DL (0.2-1.0); Calcium 8.3 MG/DL (8.5-10.1); Osmolality,Calculated 281.8 MOS/KG (273-304); Total Protein 6.7 G/DL (6.4-8.3)
[2020-06-19] MEDS ORDERED: PANTOPRAZOLE 40 MG VIAL IV SCH (09:00)
[2020-06-19] MEDS: PROMETHAZINE 25 MG/1 ML VIAL IM PRN (17:44)
[2020-06-19] MEDS: PANTOPRAZOLE 40 MG TABLET PO SCH (20:17)
[2020-06-19] MEDS: POLYETHYLENE GLYCOL POWDER 17 GM PACK PO SCH (22:21)
[2020-06-20] MEDS: PIPERACILLIN/TAZOBACTAM 3,375 MG in SODIUM CHLORIDE 0.9% 100 ML IV SCH ×2 (01:11→09:47)
[2020-06-20] MEDS: PANTOPRAZOLE 40 MG TABLET PO SCH ×2 (06:12→19:28)
[2020-06-20 06:32] LABS: Basophils # 0.1 10*3/uL (0.0-0.2); Basophils % 0.8 % (0.0-0.8); Eosinophils # 0.2 10*3/uL (0.0-0.87); Hematocrit 40.1 VOL% (35.7-47.0); Hemoglobin 13.5 GM/DL (12.0-16.0); Immature Granulocytes % 0.3 %; Immature Granulocytes Absolute 0.02 #; Lymphocytes # 1.7 10*3/uL (1.4-4.0); Lymphocytes % 26.2 % (21.3-54.2); Mean Corpuscular HGB Conc 33.7 GM/DL (32-36); Mean Corpuscular Volume 85.3 FL (87-102); Mean Platelet Volume 10.5 FL (9.6-12.0); Monocytes % 8.4 % (1.7-12.7); Neutrophils % 61.3 % (38.7-73.9); Platelet Count 223 T/CUMM (130-400); Red Cell Distribution Width 12.6 % (9.3-17.3); White Blood Count 6.4 T/CUMM (4-12)
[2020-06-20 07:00] LABS: Albumin 2.8 G/DL (3.4-5.0); Bilirubin,Total 1.5 MG/DL (0.2-1.0); Calcium 8.2 MG/DL (8.5-10.1); Risk Ratio 7.56; Thyroid Stimulating Hormone 1.76 uIU/ml (0.358-3.74); Total Protein 6.5 G/DL (6.4-8.3); VLDL CHOLESTEROL 32.8 MG/DL
[2020-06-20 07:14] LABS: Free T4 (Free Thyroxine) 1.17 NG/DL (0.76-1.46)
[2020-06-20] MEDS: HYDROmorphone 2 MG/1 ML VIAL IV PRN (09:38)
[2020-06-20] MEDS: POLYETHYLENE GLYCOL POWDER 17 GM PACK PO SCH ×2 (11:22→20:14)
[2020-06-20] MEDS: ONDANSETRON 4 MG/2 ML VIAL IV PRN (13:59)
[2020-06-20] MEDS: LACTATED RINGERS 1,000 ML IV SCH (16:48)
[2020-06-20] MEDS ORDERED: propofoL 200 MG/20 ML VIAL IV ONE (16:49)
[2020-06-20] MEDS ORDERED: LIDOCAINE 2% 5 ML VIAL ONE (16:49)
[2020-06-20] MEDS: PROMETHAZINE 25 MG/1 ML VIAL IM PRN (18:51)
[2020-06-20] MEDS: OMEGA 3 ACID ETHYL ESTERS 1 GM CAPSULE PO SCH (20:14)
[2020-06-20] MEDS: EZETIMIBE 10 MG TABLET PO SCH (20:15)
[2020-06-21] MEDS: PIPERACILLIN/TAZOBACTAM 3,375 MG in SODIUM CHLORIDE 0.9% 100 ML IV SCH ×2 (00:23→18:03)
[2020-06-21] MEDS: hydrALAZINE 20 MG/1 ML VIAL IV PRN ×2 (00:45→17:45)
[2020-06-21] MEDS: ONDANSETRON 4 MG/2 ML VIAL IV PRN ×3 (04:37→21:04)
[2020-06-21 05:27] LABS: Basophils % 0.7 % (0.0-0.8); Eosinophils # 0.3 10*3/uL (0.0-0.87); Eosinophils % 4.4 % (0.00-10.9); Hematocrit 40.4 VOL% (35.7-47.0); Hemoglobin 13.8 GM/DL (12.0-16.0); Immature Granulocytes % 0.3 %; Immature Granulocytes Absolute 0.02 #; Lymphocytes # 1.5 10*3/uL (1.4-4.0); Lymphocytes % 24.6 % (21.3-54.2); Mean Corpuscular HGB Conc 34.2 GM/DL (32-36); Mean Corpuscular Volume 84.7 FL (87-102); Mean Platelet Volume 10.8 FL (9.6-12.0); Monocytes % 10.1 % (1.7-12.7); Neutrophils % 59.9 % (38.7-73.9); Platelet Count 225 T/CUMM (130-400); Red Blood Count 4.77 MC/CUMM (3.8-5.5); Red Cell Distribution Width 12.5 % (9.3-17.3); White Blood Count 6.2 T/CUMM (4-12)
[2020-06-21 05:54] LABS: Albumin 2.8 G/DL (3.4-5.0); Bilirubin,Total 0.9 MG/DL (0.2-1.0); Calcium 8.4 MG/DL (8.5-10.1); Osmolality,Calculated 277.8 MOS/KG (273-304); Total Protein 6.6 G/DL (6.4-8.3)
[2020-06-21] MEDS: PANTOPRAZOLE 40 MG TABLET PO SCH ×2 (07:30→19:23)
[2020-06-21] MEDS: POTASSIUM CHLORIDE RIDER 10 MEQ in PREMIX 1 EACH IV PRN ×4 (08:31→15:16)
[2020-06-21] MEDS ORDERED: SODIUM CHLORIDE 0.9% 1,000 ML IV SCH (08:45)
[2020-06-21] MEDS: POLYETHYLENE GLYCOL POWDER 17 GM PACK PO SCH ×2 (09:34→22:53)
[2020-06-21] MEDS: LACTATED RINGERS 1,000 ML IV SCH (17:50)
[2020-06-21] MEDS: HYDROmorphone 2 MG/1 ML VIAL IV PRN ×2 (17:55→23:09)
[2020-06-21] MEDS: EZETIMIBE 10 MG TABLET PO SCH (22:53)
[2020-06-21] MEDS: OMEGA 3 ACID ETHYL ESTERS 1 GM CAPSULE PO SCH (22:53)
[2020-06-22] MEDS: PIPERACILLIN/TAZOBACTAM 3,375 MG in SODIUM CHLORIDE 0.9% 100 ML IV SCH ×3 (01:26→19:44)
[2020-06-22 06:26] LABS: Basophils % 0.6 % (0.0-0.8); Eosinophils # 0.2 10*3/uL (0.0-0.87); Eosinophils % 3.2 % (0.00-10.9); Hematocrit 40.7 VOL% (35.7-47.0); Hemoglobin 13.6 GM/DL (12.0-16.0); Immature Granulocytes % 0.2 %; Immature Granulocytes Absolute 0.01 #; Lymphocytes # 1.5 10*3/uL (1.4-4.0); Lymphocytes % 23.2 % (21.3-54.2); Mean Corpuscular HGB Conc 33.4 GM/DL (32-36); Mean Corpuscular Volume 85.9 FL (87-102); Mean Platelet Volume 10.9 FL (9.6-12.0); Monocytes % 9.1 % (1.7-12.7); Neutrophils % 63.7 % (38.7-73.9); Platelet Count 220 T/CUMM (130-400); Red Blood Count 4.74 MC/CUMM (3.8-5.5); Red Cell Distribution Width 12.5 % (9.3-17.3); White Blood Count 6.2 T/CUMM (4-12)
[2020-06-22 06:46] LABS: Albumin 2.8 G/DL (3.4-5.0); Bilirubin,Total 0.9 MG/DL (0.2-1.0); Total Protein 6.7 G/DL (6.4-8.3)
[2020-06-22] MEDS: PANTOPRAZOLE 40 MG TABLET PO SCH ×2 (07:00→19:21)
[2020-06-22] MEDS: POLYETHYLENE GLYCOL POWDER 17 GM PACK PO SCH ×2 (09:00→20:53)
[2020-06-22] MEDS ORDERED: PROMETHAZINE INJ 25 MG in SODIUM CHLORIDE 0.9% 50 ML IV PRN (10:05)
[2020-06-22] MEDS ORDERED: PROMETHAZINE 25 MG/1 ML VIAL ONE (10:07)
[2020-06-22] MEDS ORDERED: PROMETHAZINE INJ 25 MG in SODIUM CHLORIDE 0.9% 50 ML IV ONE (10:14)
[2020-06-22] MEDS: PROMETHAZINE 25 MG/1 ML VIAL IM PRN (12:44)
[2020-06-22] MEDS: HYDROmorphone 2 MG/1 ML VIAL IV PRN ×2 (14:15→21:06)
[2020-06-22] MEDS: amLODIPine 10 MG TABLET PO SCH (15:49)
[2020-06-22] MEDS: hydroCHLOROthiazide 25 MG TABLET PO SCH (15:50)
[2020-06-22] MEDS: LACTATED RINGERS 1,000 ML IV SCH (16:38)
[2020-06-22] MEDS: METOCLOPRAMIDE 10 MG/2 ML VIAL IV SCH (18:05)
[2020-06-22] MEDS: POTASSIUM CHLORIDE RIDER 10 MEQ in PREMIX 1 EACH IV PRN (18:11)
[2020-06-22] MEDS: OMEGA 3 ACID ETHYL ESTERS 1 GM CAPSULE PO SCH (20:53)
[2020-06-22] MEDS: EZETIMIBE 10 MG TABLET PO SCH (20:53)
[2020-06-23] MEDS: POTASSIUM CHLORIDE RIDER 10 MEQ in PREMIX 1 EACH IV PRN (00:20)
[2020-06-23] MEDS: METOCLOPRAMIDE 10 MG/2 ML VIAL IV SCH ×4 (00:20→17:51)
[2020-06-23] MEDS: HYDROmorphone 2 MG/1 ML VIAL IV PRN ×4 (02:04→22:16)
[2020-06-23] MEDS: PIPERACILLIN/TAZOBACTAM 3,375 MG in SODIUM CHLORIDE 0.9% 100 ML IV SCH ×3 (02:06→17:55)
[2020-06-23] MEDS: PANTOPRAZOLE 40 MG TABLET PO SCH ×2 (06:20→18:06)
[2020-06-23] MEDS: POLYETHYLENE GLYCOL POWDER 17 GM PACK PO SCH ×2 (08:09→22:17)
[2020-06-23] MEDS ORDERED: DIAZEPAM 5 MG TABLET PO ONE (09:02)
[2020-06-23] MEDS ORDERED: GABAPENTIN 400 MG CAPSULE PO ONE (09:02)
[2020-06-23] MEDS: hydroCHLOROthiazide 25 MG TABLET PO SCH (09:35)
[2020-06-23] MEDS: amLODIPine 10 MG TABLET PO SCH (09:35)
[2020-06-23] MEDS ORDERED: BUPIVACAINE 0.5% 50 ML VIAL ONE (11:40)
[2020-06-23] MEDS ORDERED: TISSUE ADHESIVE 1 EACH APPLICATOR TOP ONE (11:40)
[2020-06-23] MEDS ORDERED: LIDOCAINE 1%/EPI INJ 20 ML VIAL ONE (11:40)
[2020-06-23] MEDS ORDERED: LACTATED RINGERS 1,000 ML IV SCH (13:00)
[2020-06-23] MEDS ORDERED: SUGAMMADEX 200 MG/2 ML VIAL IV ONE ×2 (14:29→14:31)
[2020-06-23] MEDS ORDERED: ONDANSETRON 4 MG/2 ML VIAL IV PRN (14:48)
[2020-06-23] MEDS ORDERED: diphenhydrAMINE 50 MG/1 ML VIAL IV PRN (14:48)
[2020-06-23] MEDS ORDERED: PROMETHAZINE INJ 25 MG in SODIUM CHLORIDE 0.9% 50 ML IV PRN (14:48)
[2020-06-23] MEDS ORDERED: MEPERIDINE 25 MG/1 ML VIAL IV PRN (14:48)
[2020-06-23] MEDS ORDERED: propofoL 200 MG/20 ML VIAL IV ONE (14:54)
[2020-06-23] MEDS ORDERED: DESFLURANE 1 UNIT/15 MINUTE INH ONE (14:54)
[2020-06-23] MEDS ORDERED: LIDOCAINE 2% 5 ML VIAL ONE (14:54)
[2020-06-23] MEDS ORDERED: fentaNYL 100 MCG/2 ML VIAL ONE (14:54)
[2020-06-23] MEDS ORDERED: MIDAZOLAM 2 MG/2 ML VIAL ONE (14:55)
[2020-06-23] MEDS ORDERED: DEXAMETHASONE 4 MG/1 ML VIAL ONE (14:55)
[2020-06-23] MEDS ORDERED: ONDANSETRON 4 MG/2 ML VIAL ONE ×2 (14:55→14:56)
[2020-06-23] MEDS ORDERED: SUCCINYLCHOLINE 200 MG/10 ML VIAL ONE (14:55)
[2020-06-23] MEDS ORDERED: ROCURONIUM 100 MG/10 ML VIAL IV ONE (14:55)
[2020-06-23] MEDS ORDERED: PHENYLEPHRINE 1 MG/10 ML SYRINGE IV ONE (14:55)
[2020-06-23] MEDS ORDERED: MEPERIDINE 25 MG/1 ML VIAL ONE (14:56)
[2020-06-23] MEDS: LACTATED RINGERS 1,000 ML IV SCH (15:42)
[2020-06-23] MEDS: EZETIMIBE 10 MG TABLET PO SCH (22:15)
[2020-06-23] MEDS: OMEGA 3 ACID ETHYL ESTERS 1 GM CAPSULE PO SCH (22:15)
[2020-06-24] MEDS: METOCLOPRAMIDE 10 MG/2 ML VIAL IV SCH ×3 (00:15→13:07)
[2020-06-24] MEDS: PIPERACILLIN/TAZOBACTAM 3,375 MG in SODIUM CHLORIDE 0.9% 100 ML IV SCH ×2 (02:32→11:16)
[2020-06-24] MEDS: amLODIPine 10 MG TABLET PO SCH (11:16)
[2020-06-24] MEDS: PANTOPRAZOLE 40 MG TABLET PO SCH (11:16)
[2020-06-24] MEDS: hydroCHLOROthiazide 25 MG TABLET PO SCH (11:16)
[2020-06-24] MEDS: POLYETHYLENE GLYCOL POWDER 17 GM PACK PO SCH (11:16)
[2020-06-24] MEDS: HYDROmorphone 2 MG/1 ML VIAL IV PRN (11:23)
[2020-06-24 11:50] VITALS: BP 171/95
== END 2020-06-24 14:40 | disposition home or self-care (01) | DRG 418 ==
LOC: N.ED 18:55 → N.EDINP 18:55 → N.3E 23:50
PROVIDERS: ADMIT Surgery; ATTEND Surgery
PROC: LAPCHOL (2020-06-23 13:00)

== ENCOUNTER 2021-03-20 17:10 | Observation (INO) ==
[2021-03-20] MEDS ORDERED: SODIUM CHLORIDE 0.9% 1,000 ML IV STA (18:24)
[2021-03-20] MEDS ORDERED: MORPHINE 4 MG/1 ML VIAL IV STA (18:24)
[2021-03-20] MEDS ORDERED: ONDANSETRON ODT 4 MG TABLET PO STA (18:24)
[2021-03-20] MEDS ORDERED: ONDANSETRON 4 MG/2 ML VIAL ONE ×2 (19:03→22:41)
[2021-03-20 19:06] LABS: Basophils % 0.6 % (0.0-0.8); Eosinophils # 0.2 10*3/uL (0.0-0.87); Eosinophils % 3.5 % (0.00-10.9); Hematocrit 44.4 VOL% (35.7-47.0); Hemoglobin 14.9 GM/DL (12.0-16.0); Immature Granulocytes % 0.3 %; Immature Granulocytes Absolute 0.02 #; Lymphocytes # 1.8 10*3/uL (1.4-4.0); Mean Corpuscular HGB Conc 33.6 GM/DL (32-36); Mean Corpuscular Volume 83.8 FL (87-102); Mean Platelet Volume 10.4 FL (9.6-12.0); Monocytes % 22.5 % (1.7-12.7); Neutrophils % 44.1 % (38.7-73.9); Platelet Count 276 T/CUMM (130-400); White Blood Count 6.2 T/CUMM (4-12)
[2021-03-20 19:23] LABS: Albumin 3.2 G/DL (3.4-5.0); Bilirubin,Total 0.6 MG/DL (0.2-1.0); Calcium 8.6 MG/DL (8.5-10.1); Osmolality,Calculated 274.8 MOS/KG (273-304); Potassium 3.4 MMOL/L (3.5-5.1); Total Protein 7.5 G/DL (6.4-8.2)
[2021-03-20] MEDS ORDERED: hydrALAZINE 20 MG/1 ML VIAL IV STA (19:31)
[2021-03-20 20:06] LABS: Bacteria,Urine Occasional /HPF (Few); Bilirubin,Urine Negative (Negative); Blood, Urine Large mg/dL (Negative); Glucose,Urine (UA) Negative (Negative); Ketones,Urine Negative (Negative); Mucus,Urine Occasional /LPF (Occasional); Nitrite,Urine Negative (Negative); Protein,Urine 100 MG/DL; RBC,Urine 26 /HPF (0-4); Squamous Epithelial Cell,Urine Few /HPF (0-10); Urine Appearance Slightly Hazy (Clear); Urine Color Amber (Yellow); Urine Specific Gravity 1.025 (1.001-1.035); Urine Urobilinogen < 2.0 EU/DL (0.2-1.0)
[2021-03-20 20:06] LABS: Band Neutrophils 2 % (0-10); Eosinophils 6 % (0-10); Lymphocytes 32 % (20-55); Platelet Estimate Adequate; Segmented Neutrophils 40 % (50-85); Total Cells Counted 100
[2021-03-20] MEDS ORDERED: metroNIDAZOLE 500 MG TABLET PO STA (20:27)
[2021-03-20] MEDS ORDERED: hydrALAZINE 20 MG/1 ML VIAL IV PRN (22:37)
[2021-03-20] MEDS ORDERED: DEXTROSE 50% 25 GM/50 ML VIAL IV PRN (22:37)
[2021-03-20] MEDS ORDERED: GLUCAGON 1 MG VIAL IM PRN (22:37)
[2021-03-20] MEDS ORDERED: PROMETHAZINE INJ 12.5 MG in SODIUM CHLORIDE 0.9% 50 ML IV PRN (22:38)
[2021-03-20] MEDS ORDERED: POTASSIUM CHLORIDE RIDER 10 MEQ/100 ML PREMIX IV ONE (22:40)
[2021-03-20] MEDS ORDERED: KETOROLAC 30 MG/1 ML VIAL IV STA ×2 (22:41→22:48)
[2021-03-20] MEDS ORDERED: KETOROLAC 30 MG/1 ML VIAL ONE (22:41)
[2021-03-20] MEDS ORDERED: ONDANSETRON 4 MG/2 ML VIAL IV ONE (22:41)
[2021-03-20] MEDS ORDERED: ONDANSETRON 4 MG/2 ML VIAL IV STA (22:48)
[2021-03-21] MEDS: ENOXAPARIN 40 MG/0.4 ML SYRINGE SUBCUT SCH ×2 (00:55→23:47)
[2021-03-21] MEDS: SODIUM CHLORIDE 0.9% 1,000 ML IV SCH ×3 (00:57→23:48)
[2021-03-21] MEDS ORDERED: metroNIDAZOLE INJ 500 MG/100 ML PREMIX IV SCH (05:00)
[2021-03-21 05:58] LABS: Basophils # 0.1 10*3/uL (0.0-0.2); Basophils % 1.1 % (0.0-0.8); Eosinophils # 0.2 10*3/uL (0.0-0.87); Eosinophils % 4.3 % (0.00-10.9); Hematocrit 38.8 VOL% (35.7-47.0); Hemoglobin 13.4 GM/DL (12.0-16.0); Immature Granulocytes % 0.4 %; Immature Granulocytes Absolute 0.02 #; Lymphocytes # 1.7 10*3/uL (1.4-4.0); Lymphocytes % 37.1 % (21.3-54.2); Mean Corpuscular HGB Conc 34.5 GM/DL (32-36); Mean Corpuscular Volume 84.3 FL (87-102); Mean Platelet Volume 10.7 FL (9.6-12.0); Monocytes % 23.8 % (1.7-12.7); Neutrophils % 33.3 % (38.7-73.9); Platelet Count 211 T/CUMM (130-400); Red Cell Distribution Width 13.2 % (9.3-17.3); White Blood Count 4.7 T/CUMM (4-12)
[2021-03-21 06:19] LABS: Calcium 8.1 MG/DL (8.5-10.1); Osmolality,Calculated 273.8 MOS/KG (273-304)
[2021-03-21] MEDS: MORPHINE 4 MG/1 ML VIAL IV PRN ×3 (06:46→21:23)
[2021-03-21 08:11] LABS: Band Neutrophils 6 % (0-10); Eosinophils 5 % (0-10); Lymphocytes 35 % (20-55); Platelet Estimate Normal; Segmented Neutrophils 29 % (50-85); Total Cells Counted 100
[2021-03-21] MEDS: PANTOPRAZOLE 40 MG VIAL IV SCH (08:55)
[2021-03-21] MEDS: INSULIN LISPRO 100 UNIT/ML SUBCUT SCH ×4 (10:28→21:19)
[2021-03-21] MEDS ORDERED: VANCOMYCIN 50 MG/ML 60 ML/BOTTLE PO SCH (12:00)
[2021-03-21] MEDS ORDERED: POTASSIUM CHLORIDE 20 MEQ/15 ML UDCUP PO ONE (12:07)
[2021-03-22] MEDS: MORPHINE 4 MG/1 ML VIAL IV PRN ×3 (04:52→22:34)
[2021-03-22 05:38] LABS: Basophils % 0.6 % (0.0-0.8); Eosinophils # 0.2 10*3/uL (0.0-0.87); Eosinophils % 3.6 % (0.00-10.9); Hematocrit 38.4 VOL% (35.7-47.0); Hemoglobin 12.9 GM/DL (12.0-16.0); Immature Granulocytes % 1.1 %; Immature Granulocytes Absolute 0.06 #; Lymphocytes # 2.3 10*3/uL (1.4-4.0); Lymphocytes % 43.6 % (21.3-54.2); Mean Corpuscular HGB Conc 33.6 GM/DL (32-36); Mean Corpuscular Volume 85.7 FL (87-102); Mean Platelet Volume 10.6 FL (9.6-12.0); Monocytes % 15.5 % (1.7-12.7); Neutrophils % 35.6 % (38.7-73.9); Platelet Count 233 T/CUMM (130-400); Red Blood Count 4.48 MC/CUMM (3.8-5.5); Red Cell Distribution Width 12.8 % (9.3-17.3); White Blood Count 5.3 T/CUMM (4-12)
[2021-03-22 05:55] LABS: Calcium 7.7 MG/DL (8.5-10.1); Osmolality,Calculated 277.4 MOS/KG (273-304)
[2021-03-22 06:49] LABS: Band Neutrophils 1 % (0-10); Eosinophils 4 % (0-10); Lymphocytes 33 % (20-55); Metamyelocytes 2 %; Segmented Neutrophils 45 % (50-85); Total Cells Counted 100
[2021-03-22 06:50] LABS: Platelet Estimate Adequate; Polychromasia Slight
[2021-03-22] MEDS: INSULIN LISPRO 100 UNIT/ML SUBCUT SCH ×4 (07:56→21:59)
[2021-03-22] MEDS ORDERED: MAGNESIUM SULF RIDER 2 GM/50 ML PREMIX IV ONE (08:32)
[2021-03-22] MEDS: POTASSIUM CHLORIDE 20 MEQ/15 ML UDCUP PO SCH (10:17)
[2021-03-22] MEDS: PANTOPRAZOLE 40 MG VIAL IV SCH (10:18)
[2021-03-22] MEDS ORDERED: PANTOPRAZOLE 40 MG TABLET PO SCH (12:00)
[2021-03-22] MEDS ORDERED: POTASSIUM CHLORIDE 20 MEQ/15 ML UDCUP PO SCH (16:00)
[2021-03-22] MEDS: amLODIPine 10 MG TABLET PO SCH (16:01)
[2021-03-22] MEDS: traZODone 50 MG TABLET PO SCH (21:59)
[2021-03-22] MEDS: busPIRone 15 MG TABLET PO SCH (21:59)
[2021-03-22] MEDS: ENOXAPARIN 40 MG/0.4 ML SYRINGE SUBCUT SCH (23:44)
[2021-03-23] MEDS: MORPHINE 4 MG/1 ML VIAL IV PRN ×4 (03:53→21:42)
[2021-03-23 05:22] LABS: Basophils # 0.1 10*3/uL (0.0-0.2); Basophils % 0.8 % (0.0-0.8); Eosinophils # 0.2 10*3/uL (0.0-0.87); Eosinophils % 3.2 % (0.00-10.9); Hematocrit 39.2 VOL% (35.7-47.0); Hemoglobin 13.2 GM/DL (12.0-16.0); Immature Granulocytes % 1.3 %; Immature Granulocytes Absolute 0.08 #; Lymphocytes # 2.3 10*3/uL (1.4-4.0); Lymphocytes % 36.4 % (21.3-54.2); Mean Corpuscular HGB Conc 33.7 GM/DL (32-36); Mean Corpuscular Volume 85.8 FL (87-102); Mean Platelet Volume 10.3 FL (9.6-12.0); Monocytes % 11.2 % (1.7-12.7); Neutrophils % 47.1 % (38.7-73.9); Platelet Count 236 T/CUMM (130-400); Red Blood Count 4.57 MC/CUMM (3.8-5.5); Red Cell Distribution Width 12.9 % (9.3-17.3); White Blood Count 6.3 T/CUMM (4-12)
[2021-03-23 05:46] LABS: Atypical Lymphocytes Few; Eosinophils 2 % (0-10); Hypochromasia 1+; Lymphocytes 30 % (20-55); Microcytosis 1+; Platelet Estimate Adequate; Segmented Neutrophils 54 % (50-85); Total Cells Counted 100
[2021-03-23 05:47] LABS: Calcium 8.2 MG/DL (8.5-10.1); Osmolality,Calculated 275.5 MOS/KG (273-304); Potassium 3.4 MMOL/L (3.5-5.1)
[2021-03-23] MEDS: ESCITALOPRAM 10 MG TABLET PO SCH (09:04)
[2021-03-23] MEDS: busPIRone 15 MG TABLET PO SCH ×2 (09:04→21:35)
[2021-03-23] MEDS: amLODIPine 10 MG TABLET PO SCH (09:04)
[2021-03-23] MEDS: INSULIN LISPRO 100 UNIT/ML SUBCUT SCH ×4 (09:38→21:35)
[2021-03-23] MEDS: PANTOPRAZOLE 40 MG TABLET PO SCH (15:05)
[2021-03-23] MEDS: traZODone 50 MG TABLET PO SCH (21:35)
[2021-03-23] MEDS: ENOXAPARIN 40 MG/0.4 ML SYRINGE SUBCUT SCH (22:51)
[2021-03-24 04:37] LABS: Basophils # 0.1 10*3/uL (0.0-0.2); Basophils % 0.7 % (0.0-0.8); Eosinophils # 0.2 10*3/uL (0.0-0.87); Eosinophils % 3.1 % (0.00-10.9); Hematocrit 38.4 VOL% (35.7-47.0); Hemoglobin 13.4 GM/DL (12.0-16.0); Immature Granulocytes % 1.3 %; Immature Granulocytes Absolute 0.09 #; Lymphocytes # 2.1 10*3/uL (1.4-4.0); Lymphocytes % 31.9 % (21.3-54.2); Mean Corpuscular HGB Conc 34.9 GM/DL (32-36); Mean Corpuscular Volume 83.8 FL (87-102); Mean Platelet Volume 10.3 FL (9.6-12.0); Monocytes % 12.2 % (1.7-12.7); Neutrophils % 50.8 % (38.7-73.9); Platelet Count 215 T/CUMM (130-400); Red Blood Count 4.58 MC/CUMM (3.8-5.5); Red Cell Distribution Width 12.8 % (9.3-17.3); White Blood Count 6.7 T/CUMM (4-12)
[2021-03-24 04:53] LABS: Calcium 8.3 MG/DL (8.5-10.1); Osmolality,Calculated 273.8 MOS/KG (273-304); Potassium 3.3 MMOL/L (3.5-5.1)
[2021-03-24 05:05] LABS: Band Neutrophils 1 % (0-10); Eosinophils 2 % (0-10); Lymphocytes 34 % (20-55); Platelet Estimate Adequate; Segmented Neutrophils 54 % (50-85); Total Cells Counted 100
[2021-03-24 05:06] LABS: Hypochromasia 1+; Microcytosis 1+
[2021-03-24] MEDS: POTASSIUM CHLORIDE 20 MEQ/15 ML UDCUP PO SCH (06:30)
[2021-03-24] MEDS: MORPHINE 4 MG/1 ML VIAL IV PRN ×2 (06:52→11:06)
[2021-03-24] MEDS: INSULIN LISPRO 100 UNIT/ML SUBCUT SCH ×2 (07:11→12:55)
[2021-03-24] MEDS: busPIRone 15 MG TABLET PO SCH (09:15)
[2021-03-24] MEDS: PANTOPRAZOLE 40 MG TABLET PO SCH (09:16)
[2021-03-24] MEDS: amLODIPine 10 MG TABLET PO SCH (09:16)
[2021-03-24] MEDS: ESCITALOPRAM 10 MG TABLET PO SCH (09:16)
[2021-03-24 11:44] VITALS: BP 140/80
[2021-03-24] MEDS ORDERED: POTASSIUM CHLORIDE RIDER 10 MEQ/100 ML PREMIX IV PRN (11:55)
[2021-03-24] MEDS: POTASSIUM CHLORIDE 20 MEQ TABLET PO PRN ×2 (12:46→14:51)
== END 2021-03-24 15:17 | disposition home or self-care (01) ==
LOC: N.ED 17:10 → N.EDINP 22:35 → INTOOBSV 22:35 → N.3E 23:09
PROVIDERS: ADMIT Internal Medicine; ATTEND Internal Medicine